=== PATIENT | male | born 1970 | race Caucasian/White ===

== ENCOUNTER 2017-08-25 21:58 | Emergency (ER) | payer SELFPAY ==
[2017-08-25 22:00] VITALS: BP 136/104; PULSE 104; RESP 22; TEMP 36.7; O2SAT 99; BMI 21.0
[2017-08-25] MEDS: LORazepam 1 MG Tablet PO (22:09)
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
--- NOTE | 2017-08-25 22:57 | ED.DEP ---
ED Disposition - Plan for ED Patient: Chief Complaint: Mental Health Instructions: ED Alcohol Intoxication Referrals: Miroslava Vázquez MD [Primary Care Provider] - [facility] [GROUP OF PHYSICIANS] -
[2017-08-26 02:14] VITALS: RESP 16
[2017-08-26 06:10] VITALS: RESP 12
[2017-08-26 07:00] VITALS: RESP 14
[2017-08-26 08:03] VITALS: BP 137/87; PULSE 87; RESP 14; O2SAT 97
[2017-08-26 08:04] VITALS: BP 137/87; PULSE 87; RESP 14; O2SAT 97
== END 2017-08-26 08:05 | disposition home or self-care (01) ==
PROVIDERS: Emergency Provider Emergency Medicine; Family Provider Internal Medicine; PCP Internal Medicine
DX: F10.129 Alcohol abuse with intoxication, unspecified (principal); F41.9 Anxiety disorder, unspecified; J44.9 Chronic obstructive pulmonary disease, unspecified; Z72.0 Tobacco use; Z86.59 Personal history of other mental and behavioral disorders
CPT/HCPCS: 36415; 80320; 99284; G0480

== ENCOUNTER 2018-08-20 10:05 | Emergency (ER) | payer SELFPAY ==
[2018-08-20 10:06] VITALS: BP 137/83; PULSE 114; RESP 18; TEMP 37.6; O2SAT 91; BMI 32.1
--- NOTE | 2018-08-20 10:24 | RAD_ITS ---
STUDY: X-RAY CHEST REASON FOR EXAM: Male, 48 years old. Cough and fever. TECHNIQUE: PA and lateral views of the chest. COMPARISON: Comparison is made with prior study dated FINDINGS: EKG electrodes are seen. Mild increased linear markings at the lung bases slightly worse on the left side suggestive of a atelectasis. There is no demonstrated pleural abnormality. Normal size heart. Normal mediastinum and wanda. Normal visualized pulmonary arteries. Normal visualized aortic arch and descending thoracic aorta. Normal visualized thoracic spine. Normal visualized ribs, clavicles, and shoulders. There is no demonstrated abnormality of the visualized soft tissue structures of the upper abdomen. RAD/Chest PA and Lateral IMPRESSION: Mild increased markings at the lung bases suggestive of bibasilar atelectasis. Electronically Signed: Krish Sexton, at 11:34 EDT , Service support ,
--- NOTE | 2018-08-20 10:24 | ED.VISSUMM ---
- ER Visit Summary Date of Service: 08/20/18 Chief Complaint: Cough and congestion History of Present Illness: The patient is a 48 M who presents with cough and congestion that has been getting worse over the past week. Patient states he feels burning in his chest. Patient states this has gradually gotten worse. Patient states she is coughing up green and brown sputum. Patient admits to subjective fevers and chills. Patient also admits to some nausea and vomiting. Patient also admits to some upper back pain. Physical Examination: Vital signs are stable except for mild tachycardia of 114. Patient is afebrile. Patient is in no acute distress. Oral mucosa is pink and moist. Tympanic membranes are clear. Neck is supple. Trachea is midline. There is no JVD noted. Heart was regular and tachycardic. Lungs are diminished bilaterally. There is adequate respiratory effort. Abdomen is soft and nontender. Cranial nerves II through XII are intact. There are no focal motor or sensory deficits noted. Test Results: CBC shows a mild leukocytosis of 15.4. Sodium was 133. Chest x-ray shows bibasilar atelectasis but no acute infiltrate. Emergency Department Course and Treatment: Patient was advised that this is most likely a viral bronchitis. Patient was instructed to follow-up with his primary care physician in 7-10 days. Patient was instructed to use [id number] decongestants as needed. Patient understood and was agreeable with the plan. All questions were answered. Disposition: Discharge home Impression: Viral bronchitis This note was generated with [employer] dictation software. It may contain incorrect words, spelling, and punctuation that were not noted in review of the chart prior to signing ED Disposition - Plan for ED Patient: Disposition: Home or Assisted Living Diagnosis: Acute viral bronchitis Instructions: ED Upper Resp Infec No Abx Tx Referrals: Miroslava Vázquez MD [STAFF PHYSICIAN] - 5-7 Days
--- NOTE | 2018-08-20 10:31 | ED.DCSUM_ITS ---
- ER Visit Summary Date of Service: 08/20/18 Chief Complaint: Cough and congestion History of Present Illness: The patient is a 48 M who presents with cough and congestion that has been getting worse over the past week. Patient states he feels burning in his chest. Patient states this has gradually gotten worse. Patient states she is coughing up green and brown sputum. Patient admits to subjective fevers and chills. Patient also admits to some nausea and vomiting. Patient also admits to some upper back pain. Physical Examination: Vital signs are stable except for mild tachycardia of 114. Patient is afebrile. Patient is in no acute distress. Oral mucosa is pink and moist. Tympanic membranes are clear. Neck is supple. Trachea is midline. There is no JVD noted. Heart was regular and tachycardic. Lungs are diminished bilaterally. There is adequate respiratory effort. Abdomen is soft and nontender. Cranial nerves II through XII are intact. There are no focal motor or sensory deficits noted. Test Results: CBC shows a mild leukocytosis of 15.4. Sodium was 133. Chest x- ray shows bibasilar atelectasis but no acute infiltrate. Emergency Department Course and Treatment: Patient was advised that this is most likely a viral bronchitis. Patient was instructed to follow-up with his primary care physician in 7-10 days. Patient was instructed to use [id number] decongestants as needed. Patient understood and was agreeable with the plan. All questions were answered. Disposition: Discharge home Impression: Viral bronchitis This note was generated with [employer] dictation software. It may contain incorrect words, spelling, and punctuation that were not noted in review of the chart prior to signing ED Disposition - Plan for ED Patient: Disposition: Home or Assisted Living Diagnosis: Acute viral bronchitis Instructions: ED Upper Resp Infec No Abx Tx Referrals: Miroslava Vázquez MD [STAFF PHYSICIAN] - 5-7 Days
[2018-08-20 10:50] VITALS: BP 119/83; PULSE 105; RESP 25; O2SAT 93
[2018-08-20 10:50] LABS: Absolute Lymphocyte Count 0.68 X10^3/ul (0.83-4.51); Absolute Neutrophil Count 13.5 X10^3/uL (2.0-7.7); Basophil# 0.01 X10^3/uL; Basophil% 0.1 % (0-1); Eosinophil# 0.02 X10^3/uL; Eosinophils% 0.1 % (0-5); Hematocrit 41.6 % (40-54); Hemoglobin 13.8 g/dl (13.0-16.5); Lymphocyte # 0.68 X10^3/ul (4.0); Lymphocyte % 4.4 % (19-41); Mean Corp Hgb Conc 33.2 g/gl (32-36); Mean Corpuscular Hgb 30.1 pg (27.0-32.0); Mean Corpuscular Volume 90.6 fL (80-94); Mean Platelet Vol. 9.2 fl (6.2-12.0); Monocyte# 1.23 X10^3/uL; Neutrophil # 13.45 X10^3/uL (2.7-7.7); Neutrophil % 87.1 % (47-70); Platelet Count 371 K/mm3 (150-450); RBC Distribution Width CV 13.4 % (11.6-14.6); RBC Distribution Width SD 43.5 fl (35.1-43.9); Red Blood Count 4.59 M/mm3 (4.6-6.2); White Blood Count 15.4 K/mm3 (4.4-11.0)
[2018-08-20 10:55] LABS: POSITIVE COUNT NO; POSITIVE DIFFERENTIAL NO; POSITIVE MORPHOLOGY NO
[2018-08-20 11:00] LABS: Anion Gap 8 (5-15); BUN 15 mg/dL (7-18); BUN/Creat Ratio 16.5 RATIO (10-20); Calcium,Total 8.4 mg/dL (8.5-10.1); Chloride 102 mmol/L (98-107); Creatinine, Serum 0.91 mg/dL (0.70-1.30); EST Glomerular Filtration Rate 94 mL/min (>60); Est Glom Filt Rate - Afr Amer 114 mL/min (>60); Estimated Creatinine Clearance 85.42 ml/min; Glucose 83 mg/dL (74-106); Potassium 4.2 mmol/L (3.5-5.1); Sodium Level 133 mmol/L (136-145)
[2018-08-20] MEDS: Ipratropium/Albuterol Sulfate 3 ML AMPUL.NEB INHALATION (11:04)
[2018-08-20 11:05] VITALS: PULSE 102; RESP 21; O2SAT 94; O2SAT 95
[2018-08-20 12:05] VITALS: PULSE 104; RESP 23; O2SAT 91
[2018-08-20 13:36] VITALS: BP 116/70; PULSE 91; RESP 18; O2SAT 95
== END 2018-08-20 13:36 | disposition home or self-care (01) ==
PROVIDERS: Emergency Provider Emergency Medicine
DX: J44.0 Chronic obstructive pulmonary disease with (acute) lower respiratory infection (principal); J20.8 Acute bronchitis due to other specified organisms; R11.2 Nausea with vomiting, unspecified; M54.6 Pain in thoracic spine; Z72.0 Tobacco use
CPT/HCPCS: 71046; 80048; 85025; 94640; 99284

== ENCOUNTER 2019-04-08 09:48 | Emergency (ER) | payer SELFPAY ==
[2019-04-08 09:49] VITALS: BP 126/99; PULSE 117; RESP 16; TEMP 36.8; O2SAT 98; BMI 26.4
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
[2019-04-08] MEDS: LORazepam 1 MG Tablet PO (10:40)
--- NOTE | 2019-04-08 10:52 | CM.ED ---
SOCIAL WORK INFORMANT: DR. WHYTE REASON FOR REFERRAL: RESOURCES CHIEF COMPLIANT: PATIENT WITH HISTORY OF ANXIETY AND ALCOHOL ABUSE, NO TRANSPORTATION, AND SELF-PAY. LIVING SITUATION: PATIENT LIVES HOME ALONE EMPLOYMENT: [employer] MENTAL HEALTH: PATIENT REPORTS HISTORY OF ANXIETY AND STATES PREVIOUSLY FOLLOWED WITH THE COUNSELING CENTER. PATIENT STATES NOW UTILIZES FACEBOOK CHAT ROOMS AND TEXT LINE TO ASSIST WITH COPING WITH ANXIETY. SUBSTANCE ABUSE HISTORY/TREATMENT: PATIENT REPORTS USED TO DRINK A 30 PACK OF BEER/DAY AND 5TH OF WHISKEY. PATIENT STATES NOW DRINKS 12 PACK OF BEER A DAY. PATIENT STATES IT HELPS WITH MY ANXIETY. PATIENT STATES PREVIOUSLY HAS FOLLOWED WITH [facility]. SOCIAL STRESSORS: PATIENT STATES DOES NOT DRIVE AND WALKS TO AND FROM WORK WHICH TAKES [address]. PATIENT STATES NO LONGER HAS INSURANCE. PATIENT OPEN TO GETTING BACK INTO COUNSELING. ASSESSMENT: MET WITH PATIENT IN ROOM. INTRODUCED ROLE AND REASON FOR REFERRAL. PATIENT UNSURE WHEN INSURANCE LAPSED. PATIENT PROVIDED WITH [employer] PHONE NUMBER AND STATES WILL HAVE SON ASSIST HIM WITH GETTING INSURANCE TOMORROW MORNING. DISCUSSED OPTIONS FOR TREATMENT OF ALCOHOL AND ANXIETY. EDUCATION PROVIDED ON TRANSPORTATION SERVICES THROUGH INSURANCE FOR APPOINTMENTS AND DISCUSSED GETTING SET UP WITH GAS STATION OPERATOR THROUGH INSURANCE. PATIENT DOES NOT HAVE PRIMARY CARE PHYSICIAN. PATIENT GIVEN INFORMATION ON FREE CLINIC AND LIST OF LOCAL PRIMARY CARE PHYSICIANS. PATIENT IN AGREEMENT WITH PLAN. PATIENT PROVIDED WITH THIS WORKER'S BUSINESS CARD FOR ANY FURTHER NEEDS/ASSISTANCE. UPDATED DR. WHYTE ON THE ABOVE. PLAN: HOME BEFORE WITH RESOURCES PROVIDED. Rosie ALEJANDRO, INSPECTING MACHINE ADJUSTER, SAND CONTROL WORKER.
== END 2019-04-08 11:17 | disposition home or self-care (01) ==
PROVIDERS: Emergency Provider Emergency Medicine
DX: F41.1 Generalized anxiety disorder (principal); F41.0 Panic disorder [episodic paroxysmal anxiety]; F20.9 Schizophrenia, unspecified; F17.220 Nicotine dependence, chewing tobacco, uncomplicated; Z79.899 Other long term (current) drug therapy
CPT/HCPCS: 99283